=== PATIENT | female | born 1975 | race Caucasian/White ===

== ENCOUNTER 2025-03-10 09:30 | Outpatient (CLI) | payer OTHER, SELFPAY | END 2025-03-10 09:31 | disposition home or self-care (01) | LOC: NFLDREF 03-14 11:18 | PROVIDERS: Visit Provider Nurse Practitioner Family | DX: R53.83 Other fatigue (principal); Z13.6 Encounter for screening for cardiovascular disorders | CPT/HCPCS: 80053; 80061; 84439; 84443 ==